=== PATIENT | female | born 1945 | race Caucasian/White ===

== ENCOUNTER 2024-01-03 09:20 | Outpatient (CLI) | payer OTHER, SELFPAY ==
[2024-01-03 10:00] LABS: Anion Gap 12 mmol/L (4-12); Blood Urea Nitrogen 21 mg/dL (7-17); Calcium 9.3 mg/dL (8.4-10.2); Carbon Dioxide 23 mmol/L (22-30); Chloride 102 mmol/L (98-107); Estimated Glomerular Filt Rate > 60; Glucose 118 mg/dL (65-110); Potassium 4.7 mmol/L (3.4-5.0); Sodium 137 mmol/L (137-145)
== END 2024-01-03 09:21 | disposition home or self-care (01) ==
LOC: ANHSURGERY 09:28
PROVIDERS: Anesthesiology; PCP Family Medicine; Visit Provider Urology
DX: Z01.818 Encounter for other preprocedural examination (principal); N36.2 Urethral caruncle; N39.0 Urinary tract infection, site not specified; E11.9 Type 2 diabetes mellitus without complications; I10 Essential (primary) hypertension
CPT/HCPCS: 36415; 80048; 87086; 87088

== ENCOUNTER 2024-01-10 00:07 | Day surgery (SDC) | payer OTHER, SELFPAY ==
[2024-01-02 11:33] VITALS: BMI 29.1
--- NOTE | 2024-01-02 11:47 | PC.NURSE ---
Report to the Outpatient Waiting Room, entrance under the green pavilion located off [facility], at time __0600am on date __01/10/24 . Planned Procedure Time: __07:30am .? Time changes happen often and if your time is changed the preop area will call you the afternoon before. - You and your visitor will be asked to self-screen and do not enter if you have any COVID symptoms. Please call surgeon if you need to reschedule. - A mask is optional within the hospital at this time. Patients may have clear liquids (water, carbonated beverages, clear teas, apple juice) until 3 hours prior to surgery with a maximum of 20 ounces. - No food from midnight until time of surgery and no smoking Take only the following medications with a SIP of water on the morning of surgery: ____None DO NOT STOP ANY OF YOUR OTHER PRESCRIPTION MEDICATIONS PRIOR TO SURGERY EXCEPT THE FOLLOWING Medications to discontinue per physician Stop Aspirin and , Vitamins, Supplements [address] Lynn Date to take last dose___01/02/24 Please no make-up, nail latvian, hairspray, perfume, deodorant, or body powder the day of surgery.? No jewelry (including any body piercings) or valuables the day of surgery, leave them at home.? Please take a shower or bath the night before, or the morning of, surgery with an antibacterial soap.? Wear comfortable, loose fitting clothing.? - Jewelry must be removed prior to entering the operating room.? Rings and piercings that are not removed may be cut off. - The hospital will not accept responsibility for valuables.? - Please leave all valuables, including medications, at home the day of surgery. If you are going home after surgery, a licensed driver license examiner must drive you home.? - NO public transportation without another adult if you receive anesthesia. - We recommend that an adult stay with you for 24 hours following discharge. - We also recommend that you do not drive, make important decision, drink alcoholic beverages, or take any drugs that were not prescribed by your health care provider for at least 24 hours after your discharge time. Follow any additional instructions given to you from your surgeon. Telephone instructions given to ____patient and asked if any additional questions and then verbalized understanding. Patient advised to call surgeon office or pre surgery nurse liaison [phone] if any additional questions.
--- NOTE | 2024-01-08 21:56 | PM.IMHP ---
H&P: HPI History of Present Illness Date/Time: 01/08/24 21:56 Chief Complaint: Urethral polyp Narrative: she is large urethral polyp at her bladder neck. It is seen on cystoscopy. Will plan on cystoscopic excision Review of Systems Review of Systems: All systems reviewed & are unremarkable except as noted in HPI and below [facility] Social History Social History Smoking packs per day: 0.5 Smoking cigarettes per day: 10.0 Years smoked: 3 Smoking pack-years: 1.50 Smoking status: Former smoker Tobacco type: cigarettes Smoking end date: 11/03/85 Alcohol intake: never Living arrangements: alone Spiritual care concerns: No Meds Home Medications and Allergies Home Medications Medication Instructions Recorded Confirmed Type aspirin 81 mg tablet,delayed 81 mg PO DAILY 01/02/24 01/02/24 History release atorvastatin 10 mg tablet 10 mg PO HS 01/02/24 01/02/24 History lisinopril 10 mg tablet 10 mg PO DAILY 01/02/24 01/02/24 History meloxicam 15 mg tablet 15 mg PO DAILY 01/02/24 01/02/24 History metformin 500 mg tablet 500 mg PO BID 01/02/24 01/02/24 History Allergies Allergy/AdvReac Type Severity Reaction Status Date / Time No Known Allergies Allergy Verified 01/02/24 11:25 Exam Narrative: no acute distress normal breathing alert and oriented times Assessment and Plan Assessment and plan (1) Urethral polyp: Code(s): N36.2 - Urethral caruncle Status: Acute Assessment and Plan: cystoscopic excision of urethral polyp
--- NOTE | 2024-01-09 10:58 | P.PNAN_ITS ---
Anes - Initial Pre Proc Eval Procedure: Operation Date: 01/10/24 07:30 Proposed Procedures p Cystoscopy, Resection Urethral Polyp - Rene Lynn MD Date/Time: 01/09/24 10:58 Surgeon: Rene Lynn MD Pre Op Diagnosis: urethral polyp Patient Data Age: 78 Gender: F Height: 1.63 m Weight: 77 kg Allergies Allergy/AdvReac Type Severity Reaction Status Date / Time No Known Allergies Allergy Verified 01/10/24 07:01 Home Medications Medication Instructions Recorded Confirmed Type aspirin 81 mg tablet,delayed 81 mg PO DAILY 01/02/24 01/02/24 History release atorvastatin 10 mg tablet 10 mg PO HS 01/02/24 01/02/24 History lisinopril 10 mg tablet 10 mg PO DAILY 01/02/24 01/02/24 History meloxicam 15 mg tablet 15 mg PO DAILY 01/02/24 01/02/24 History metformin 500 mg tablet 500 mg PO BID 01/02/24 01/02/24 History Patient hx anesthesia problems: post op nausea/vomiting Family hx anesthesia problems: none Results Review: All pre-operative results and documents have been reviewed as part of the pre- operative evaluation. [facility] Past Medical History Medical History (Updated 01/09/24 @ 10:58 by Tee Campbell DO) Anxiety Diabetes type 2, controlled Hyperlipidemia Hypertension PONV (postoperative nausea and vomiting) Social History Social History Smoking packs per day: 0.5 Smoking cigarettes per day: 10.0 Years smoked: 3 Smoking pack-years: 1.50 Smoking status: Former smoker Tobacco type: cigarettes Smoking end date: 11/03/85 Alcohol intake: never Living arrangements: alone Spiritual care concerns: No Anes - Eval Final PreProcedure Day of Procedure 01/09/24 10:58 Patient weight: overweight Heart: regular rate and rhythm Lungs: clear to auscultation Airway: Mallampati scale class II Neurological: alert and oriented Last oral intake: >/= 8 hours ASA classification: II Emergent: no Anesthetic plan: proceed Anesthesia type and monitoring: general GIVS and standard monitoring Results Review: All pre-operative results and documents have been reviewed as part of the pre- operative evaluation. Informed Consent: The patient's anesthetic plan and its attendant risks and benefits were discussed with the patient/family/POA. Questions were solicited and answers provided to the satisfaction of the patient/family/POA.
[2024-01-10 06:43] LABS: Glucose Point of Care 123 mg/dl (65-105)
[2024-01-10 07:06] VITALS: BMI 28.8
[2024-01-10 07:09] VITALS: BP 117/65; PULSE 62; RESP 18; TEMP 36.1; O2SAT 100
--- NOTE | 2024-01-10 07:14 | WPDHPUPDATE1 ---
History and Physical Update Update Date/Time: 01/10/24 07:14 History and Physical has been reviewed, including an updated exam of the patient. There are NO changes in the patient's condition. Risks, benefits, and alternatives have been discussed and questions answered. Patient agrees to proceed with procedure.
[2024-01-10] MEDS: ceFAZolin 2 GM/D5W 50 ML 2 GM/50 ML BAG IVPB (07:27)
[2024-01-10 07:50] VITALS: BP 99/55; PULSE 58; RESP 16; O2SAT 100
[2024-01-10] MEDS: LACTATED RINGERS 1,000 ML 30 ML IV CONT (07:50)
--- NOTE | 2024-01-10 07:51 | W.PM.PROC2 ---
Procedure Note - Detailed Date of Procedure 01/10/24 Pre-op Diagnosis urethral polyp Post-op Diagnosis Same Procedure Performed This is a woman with a large urethral polyp noted on CT scan and confirmed on cystoscopy. I think this is likely benign but due to the size of the polyp we have opted for removal and pathologic analysis. She understands risks of bleeding, infection, damage to the urinary tract. She agrees to proceed Surgeon Rene Lynn MD Anesthesia MAC and Local (Uro jet) Findings Large urethral polyp at 6:00 a.m. position on the bladder neck. Approximately 1-2 cm long narrow base Description of Procedure Separately identified. Informed consent obtained. She from the operating room. She was given monitored anesthesia care. She is placed in dorsal lithotomy position. She was prepped draped sterile fashion. Time-out performed. I performed cystoscopy. Her bladder was examined. There is no significant bladder abnormalities. No tumors or stones. No trabeculations. No abnormal red patches. No foreign bodies. Ureteral orifices were normal. At the 6 o'clock position of the bladder neck there was a 1-2 cm long urethral polyp with a very narrow base. I used a biopsy forceps to remove the polyp at the base. I was able to remove the polyp completely. I fulgurated the base to control the bleeding. There was no bleeding under low insufflation pressures. Her bladder was drained. She was awakened transferred to PACU in stable condition. Estimated Blood Loss 1 Pathology Yes (Urethral polyp) Complications No immediate complications Condition Stable Disposition PACU
[2024-01-10 08:15] VITALS: BP 125/73; PULSE 56; RESP 20
[2024-01-10 08:40] VITALS: BP 122/61; PULSE 54; RESP 20
== END 2024-01-10 08:47 | disposition home or self-care (01) ==
PROVIDERS: PCP Family Medicine; Visit Provider Urology
PROC: 0TBB8ZX Excision of Bladder, Via Natural or Artificial Opening Endoscopic, Diagnostic (ICD-10-PCS; CPT 52204; principal; 2024-01-10 07:30)
DX: N36.2 Urethral caruncle (principal); I10 Essential (primary) hypertension; E11.9 Type 2 diabetes mellitus without complications; E78.5 Hyperlipidemia, unspecified; F41.9 Anxiety disorder, unspecified; Z79.82 Long term (current) use of aspirin; Z87.891 Personal history of nicotine dependence
CPT/HCPCS: 52500; 36415; 80048; 82948; 87086; 88305; J0690; J1100; J2405; J2704; J7120